=== PATIENT | female | born 1945 | race Caucasian/White ===

== ENCOUNTER 2018-03-18 18:09 | Inpatient (IN) | payer MEDICARE, MEDICAID ==
[~2018-03-18] VITALS: Ht 165.1 cm; Wt 90.7 kg
--- NOTE | 2018-03-18 18:09 | NUR ---
EUNICE FROM [facility] FOR GPS ADMISSION, AGGRESSIVE AND THREATENING BEHAVIOUR TOWARDS CAREGIVERS, ON 5150 HOLD FOR DTO. TO ER BED 6, HOOKED TO MONITOR, AWAITING MD STEELE
--- NOTE | 2018-03-18 18:30 | NUR ---
DR CARDOSO AT BEDSIDE
--- NOTE | 2018-03-18 19:00 | NUR ---
URINE SAMPLE SUBMITTED TO LAB
[2018-03-18 19:16] LABS: APPEARANCE,URINE Clear (CLEAR); BILIRUBIN,URINE Negative (NEGATIVE); BLOOD, URINE Trace-intact Ery/uL (NEGATIVE); COLOR,URINE Yellow (YELLOW); KETONES,URINE Negative (NEGATIVE); LEUKOCYTE ESTERASE ,URINE Negative (NEGATIVE); NITRITE, URINE Negative (NEGATIVE); PROTEIN,URINE Negative (NEGATIVE); UGLUCOSE Negative (NEGATIVE); UROBILINOGEN,URINE 0.2 EU/dL (0.2)
[2018-03-18] MEDS ORDERED: CLON0.2T PO (19:24)
[2018-03-18] MEDS ORDERED: FOLI1TAB16 PO (19:24)
[2018-03-18] MEDS ORDERED: DOCU250C14 PO (19:24)
[2018-03-18] MEDS ORDERED: IPRA0.2S9 IH (19:24)
[2018-03-18] MEDS ORDERED: CARV6.25 PO (19:24)
[2018-03-18] MEDS ORDERED: ASPI-1152 PO (19:24)
[2018-03-18] MEDS ORDERED: BENZ1LOZ58 MM (19:24)
[2018-03-18] MEDS ORDERED: ALBU2.5V38 IH (19:24)
[2018-03-18 19:26] LABS: BACTERIA,URINE None seen /HPF (None Seen); SQUAMOUS EPITHELIAL CELL,UR Few /HPF (None Seen); WBC,URINE 0-2 /HPF (0-3)
--- NOTE | 2018-03-18 19:28 | NUR ---
BED ASSIGNMENT GPS 219-B
--- NOTE | 2018-03-18 19:30 | NUR ---
TOSSER AT BEDSIDE FOR BLOOD DRAW
[2018-03-18] MEDS ORDERED: ACET325T53 PO (19:34)
[2018-03-18] MEDS ORDERED: CHOL200026 PO (19:34)
[2018-03-18] MEDS ORDERED: HYDR-4384 PO (19:34)
[2018-03-18] MEDS ORDERED: CLON0.5T PO (19:34)
[2018-03-18] MEDS ORDERED: CLON2TAB PO (19:34)
[2018-03-18] MEDS ORDERED: ONDA4TAB5 PO (19:34)
[2018-03-18] MEDS ORDERED: PANT40TA2 PO (19:34)
[2018-03-18] MEDS ORDERED: AMLO5TAB4 PO (19:34)
[2018-03-18] MEDS ORDERED: SENN-168 PO (19:34)
[2018-03-18] MEDS ORDERED: MULT1TAB73 PO (19:34)
[2018-03-18] MEDS ORDERED: TEMA30CA5 PO (19:34)
[2018-03-18] MEDS ORDERED: LATA2.5D2 EACHEYE (19:34)
--- NOTE | 2018-03-18 19:37 | NUR ---
REPORT GIVEN TO HOMAR ROJAS FOR MAKENNA
--- NOTE | 2018-03-18 19:37 | NUR ---
RECEIVED REPORT FROM SARAH ROJAS FOR MAKENNA
[2018-03-18 19:48] LABS: BASOPHILS # (AUTO) 0.1 /CMM (0.0-0.2); BASOPHILS % (AUTO) 1.4 % (0.0-2.0); EOSINOPHILS % (AUTO) 3.7 % (0.0-6.0); HEMATOCRIT 42 % (33-45); HEMOGLOBIN 14.2 g/dL (11.5-14.8); LYMPHOCYTES # (AUTO) 2.6 /CMM (0.8-4.8); LYMPHOCYTES % (AUTO) 24.5 % (20.0-44.0); MEAN CORPUSCULAR HGB CONC 34 g/dl (31.0-36.0); MEAN CORPUSCULAR VOLUME 93 fL (82-100); MONOCYTES % (AUTO) 9.8 % (2.0-12.0); NEUTROPHILS # (AUTO) 6.4 /CMM (1.8-8.9); NEUTROPHILS % (AUTO) 60.6 % (43.0-81.0); PLATELET COUNT (AUTO) 278 /CMM (150-450); RED BLOOD CELL COUNT(AUTO) 4.51 MIL/uL (4.0-5.2); WHITE BLOOD COUNT (AUTO) 10.6 K/uL (4.3-11.0)
[2018-03-18 19:56] LABS: CALCIUM, SERUM 9.2 mg/dL (8.5-10.1); CARBON DIOXIDE 28 mmol/L (21-32); CHLORIDE 105 mmol/L (98-107); CREATININE 0.8 mg/dL (0.6-1.3); GLUCOSE 151 mg/dL (74-106); POTASSIUM 3.8 mmol/L (3.5-5.1); SODIUM SERUM 141 mmol/L (136-145); UREA NITROGEN, BLOOD 10 mg/dL (7-18)
[2018-03-18 20:03] LABS: ACETAMINOPHEN < 2 ug/ml (10-30); ALANINE AMINOTRANSFERASE 21 U/L (12-78); ALBUMIN 3.4 g/dL (3.4-5.0); ALCOHOL, BLOOD < 3 mg/dL (0-0); ALKALINE PHOSPHATASE 130 U/L (46-116); ASPARTATE AMINOTRANSFERASE 22 U/L (15-37); BILIRUBIN,DIRECT 0.1 mg/dL (0.0-0.2); BILIRUBIN,TOTAL 0.2 mg/dL (0.2-1.0); SALICYLATE 2.7 mg/dL (2.8-20.0); TOTAL PROTEIN, SERUM 8.2 g/dL (6.4-8.2)
--- NOTE | 2018-03-18 20:29 | NUR ---
GAVE REPORT TO HALLIE ROJAS FOR MAKENNA
--- NOTE | 2018-03-18 20:56 | NUR ---
PT TRANSFERRED TO GPS BED VIA GURNEY WITH EMT
[2018-03-18 21:10] VITALS: BP 128/97
--- NOTE | 2018-03-18 21:10 | NUR ---
GPS-[employer] ARCHITECT NOTES: PATIENT ADMITTED FROM ER INITIALLY FROM [facility]. ADMITTED ON 5149 FOR DTO. CAME TO THE UNIT AROUND 2109 VIA STRETCHER, BROUGHT IN BY ER STAFF. PATIENT IS ADMITTED DUE TO ACTING OUT AGGRESSIVELY TOWARDS CAREGIVERS. PT. WAS YELLING AND SCREAMING. PT STATED "I HATE YOU FUCKING PEOPLE I COULD KILL YOU". PLACED PATIENT IN BED COMFORTABLY. PATIENT SHOWS NO S/SX OF ANY DISTRESS, RESPIRATION EVEN, BREATHING PATTERN NON-LABORED, DENIES PAIN OR DISCOMFORT AT THIS TIME. UPON FACE TO FACE ASSESSMENT PATIENT IS ALERT, ORIENTED 3, GETS EASILY IRRITABLE, INAPPROPRIATE LANGUAGE USED, REDIRECTABLE. DENIES SI/HI OR HALLUCINATIONS AT THIS TIME. AMBULATES WITH WALKER. BELONGINGS WERE INVENTORIED AND CHECKED FOR CONTRABAND. ORDERS WERE OBTAINED FROM DR. SHAW, AND UNDER THE MEDICAL CARE OF DR. THOMSON, SPOKE TO AND MADE AWARE OF PT'S ADMISSION AND MED RECON NEEDS TO BE DONE. SKIN ASSESSMENT DONE. BED LOCKED AND PLACED ON LOWEST POSITION TO MAINTAIN SAFETY. FALL PRECAUTIONS IMPLEMENTED. WILL CONTINUE TO MONITOR Q 15 MINS. FOR SAFETY AND BEHAVIOR.
[2018-03-18] MEDS ORDERED: MAGNESIUM HYDROXIDE 30 ML UDC PO PRN (22:00)
[2018-03-18] MEDS ORDERED: ACETAMINOPHEN 325 MG TABLET PO PRN (22:00)
[2018-03-18] MEDS ORDERED: LORAZEPAM 1 MG TABLET PO PRN (22:00)
[2018-03-18] MEDS ORDERED: MAG HYDROX/AL HYDROX/SIMETH 30 ML UDC PO PRN (22:00)
[2018-03-18] MEDS: clonazePAM 1 MG TABLET PO SCH (22:12)
[2018-03-18] MEDS: TEMAZEPAM 15 MG CAPSULE PO PRN (23:58)
--- NOTE | 2018-03-19 06:25 | NUR ---
GPS-RN SPOKE TO DR. ELIGIO THOMSON ON-CALL FOR DR. GILLIAN THOMSON REGARDING MED RECON, STATED TO CONTINUE THE SAME ORDERS. FAXED TO PHARMACY MED LIST. WILL ENDORSE TO THE DAY SHIFT NURSE ACCORDINGLY.
[2018-03-19 08:00] VITALS: BP 133/60
[2018-03-19] MEDS ORDERED: ONDANSETRON 4 MG TAB.RAPDIS PO PRN (08:00)
[2018-03-19] MEDS ORDERED: ALBUTEROL FS 2.5 MG/3 ML VIAL.NEB NEB PRN (08:00)
[2018-03-19] MEDS ORDERED: IPRATROPIUM NEB FS 0.5 MG/2.5 ML AMPUL.NEB IH PRN (08:00)
[2018-03-19] MEDS ORDERED: MENTHOL/CETYLPYRD (CEPACOL) 1 LOZ LOZENGE PO PRN (08:00)
[2018-03-19] MEDS: MULTIVITAMINS,THERAGRAN 1 UDTAB TABLET PO SCH (09:00)
[2018-03-19] MEDS ORDERED: clonazePAM 0.5 MG TABLET PO SCH (09:00)
[2018-03-19] MEDS: AMLODIPINE BESYLATE 5 MG TABLET PO SCH ×2 (10:17→16:54)
[2018-03-19] MEDS: HYDROCODONE/APAP 5/325MG 1 EACH TABLET PO PRN ×2 (10:17→16:55)
[2018-03-19] MEDS: CLONIDINE HCL 0.1 MG TABLET PO SCH ×3 (10:18→16:53)
[2018-03-19] MEDS: clonazePAM 0.5 MG TABLET PO SCH (10:18)
[2018-03-19] MEDS: DOCUSATE SODIUM 250 MG CAPSULE PO SCH ×2 (10:19→16:53)
[2018-03-19] MEDS: ASPIRIN EC 81 MG TABLET.DR PO SCH (10:19)
[2018-03-19] MEDS: FOLIC ACID 1 MG TABLET PO SCH (10:19)
[2018-03-19] MEDS: PANTOPRAZOLE 40 MG TABLET.DR PO SCH (10:19)
[2018-03-19] MEDS: CHOLECALCIFEROL 1,000 UNIT TABLET (VIT D3) PO SCH (10:20)
[2018-03-19] MEDS: CARVEDILOL 6.25 MG TABLET PO SCH ×2 (10:20→21:00)
[2018-03-19] MEDS: CODEINE/PROMETHAZINE HCL 5 ML UDC PO PRN ×2 (10:21→17:22)
--- NOTE | 2018-03-19 13:20 | NUR ---
0800 ASSUMED CARE OF PATIENT. PATIENT ALERT AND ORIENTED TIMES 4. PATIENT DENIES SI AND HI AT THIS TIME. PATIENT IN ROOM WITH NO SIGNS OF DISTRESS AT THIS TIME. PATIENT HAS PAIN 5/10 IN BILATERAL KNEES. PATIENTS VITALS STABLE. 0900 PATIENT MEDICATION COMPLIANT WITH ALL MEDICATIONS. PATIENT CALM AND COOPERATIVE. 1015 PATIENT IN ROOM. PATIENT HAS PAIN 9/10 IN BILATERAL KNEES AND COMPLAINING OF SORE THROAT AND PAIN 6/10 IN THROAT AND NON PRODUCTIVE COUGH. PATIENT GIVEN PROMETHEZINE WITH CODEINE COUGH SYRUP AND NORCO AT THIS TIME FOR COUGH AND PAIN 9/[address] ORDERS. NO BEHAVIORAL PROBLEMS NOTED. 1300 PATIENT IN ROOM. NO PROBLEMS NOTED. PATIENT DENIES PAIN AT THIS TIME. WILL CONTINUE TO MONITOR THROUGHOUT SHIFT.
--- NOTE | 2018-03-19 15:25 | NUR ---
Initial Discharge Plan: Pt currently lives at [facility] located at [address] [place] [address]; ([phone]). Pt would like to return and SW informed the facility who are attempting to decide if she is appropriate or not. SW will work with the pt and the MD regarding appropriate discharge planning. SW will form a safe and proper discharge.
--- NOTE | 2018-03-19 15:26 | NUR ---
PAT called the pt's daughter, Luly ([phone]), but the dial tone went into a message that stated that the number is no longer in service. PAT spoke to the pt's psychiatrist, Dr. Sainz, who stated that the daughter does not have a relationship with the pt.
[2018-03-19 16:04] VITALS: BP 107/59
--- NOTE | 2018-03-19 18:17 | NUR ---
1800 PATIENT IN BED RESTING AT THIS TIME. PATIENT DENIES SI AND HI THROUGHOUT SHIFT. PATIENT VITALS STABLE. PATIENT GIVEN PROMETHAZINE/CODEINE SYRUP AND NORCO AT 1000 AND 1730 FOR PAIN IN BILATERAL KNEES. PATIENT HAS NO SIGNS OF DISTRESS AT THIS TIME PATIENT MEDICATION COMPLIANT THROUGHOUT SHIFT. PATIENT HAS NO BEHAVIORAL PROBLEMS. PATIENT CALM AND COOPERATIVE. ORDERED PATIENT DNR. ALL MEDICAL MEDICATION RECONCILED. WILL ENDORSE TO EDUCATION ADVISER RN. ZEINA HERNANDEZ
[2018-03-19 20:00] VITALS: BP 92/48
[2018-03-19] MEDS: clonazePAM 1 MG TABLET PO SCH (21:34)
[2018-03-19] MEDS: LATANOPROST EYE DROP 0.005% 2.5 ML BOTTLE EACHEYE SCH (21:37)
[2018-03-19] MEDS: SENNOSIDES 8.6 MG TABLET PO SCH (21:37)
[2018-03-20] VITALS: BP 108/56
[2018-03-20] MEDS: TEMAZEPAM 15 MG CAPSULE PO PRN ×2 (00:34→22:50)
[2018-03-20] MEDS: CODEINE/PROMETHAZINE HCL 5 ML UDC PO PRN ×3 (07:01→20:54)
[2018-03-20 08:00] VITALS: BP 133/71
[2018-03-20] MEDS: ASPIRIN EC 81 MG TABLET.DR PO SCH (08:45)
[2018-03-20] MEDS: DOCUSATE SODIUM 250 MG CAPSULE PO SCH ×2 (08:45→16:13)
[2018-03-20] MEDS: CLONIDINE HCL 0.1 MG TABLET PO SCH ×3 (08:45→16:14)
[2018-03-20] MEDS: PANTOPRAZOLE 40 MG TABLET.DR PO SCH (08:45)
[2018-03-20] MEDS: MULTIVITAMINS,THERAGRAN 1 UDTAB TABLET PO SCH (08:45)
[2018-03-20] MEDS: FOLIC ACID 1 MG TABLET PO SCH (08:45)
[2018-03-20] MEDS: CHOLECALCIFEROL 1,000 UNIT TABLET (VIT D3) PO SCH (08:46)
[2018-03-20] MEDS: AMLODIPINE BESYLATE 5 MG TABLET PO SCH ×2 (08:46→16:13)
[2018-03-20] MEDS: clonazePAM 0.5 MG TABLET PO SCH (08:46)
[2018-03-20] MEDS: CARVEDILOL 6.25 MG TABLET PO SCH ×2 (08:46→20:57)
[2018-03-20] MEDS: HYDROCODONE/APAP 5/325MG 1 EACH TABLET PO PRN ×2 (10:08→16:13)
--- NOTE | 2018-03-20 15:42 | NUR ---
GPS/RN PATIENT REFUSED LABS OFFERED X 3 WITH RISKS AND BENEFITS EXPLAINED CONTINUE TO REFUSE. WILL NOTIFY .
[2018-03-20 16:00] VITALS: BP 152/89
--- NOTE | 2018-03-20 16:26 | NUR ---
Mika ([phone]) from [facility] stated that the pt is denied admission back into their facility. SW will now work on securing alternative SNF placement or find placement with a friend.
--- NOTE | 2018-03-20 16:27 | NUR ---
PAT called the pt's friend, Tomer ([phone]), and was unable to make contact because the tone stated that the call cannot be completed.
--- NOTE | 2018-03-20 16:30 | NUR ---
SW called the pt's friend with the accurate number, Tomer ([phone]), and left a message on her voicemail stating that the pt stated she can live with them and the SW just needs to verify this information.
[2018-03-20 20:00] VITALS: BP 127/86
[2018-03-20] MEDS: LATANOPROST EYE DROP 0.005% 2.5 ML BOTTLE EACHEYE SCH (20:59)
[2018-03-20] MEDS: SENNOSIDES 8.6 MG TABLET PO SCH (21:00)
[2018-03-20] MEDS: clonazePAM 1 MG TABLET PO SCH (21:00)
[2018-03-21] MEDS: CODEINE/PROMETHAZINE HCL 5 ML UDC PO PRN ×3 (04:54→22:40)
[2018-03-21 08:00] VITALS: BP 145/74
[2018-03-21] MEDS: clonazePAM 0.5 MG TABLET PO SCH (08:24)
[2018-03-21] MEDS: CLONIDINE HCL 0.1 MG TABLET PO SCH ×3 (08:24→16:33)
[2018-03-21] MEDS: AMLODIPINE BESYLATE 5 MG TABLET PO SCH ×2 (08:24→16:33)
[2018-03-21] MEDS: CHOLECALCIFEROL 1,000 UNIT TABLET (VIT D3) PO SCH (08:25)
[2018-03-21] MEDS: FOLIC ACID 1 MG TABLET PO SCH (08:25)
[2018-03-21] MEDS: CARVEDILOL 6.25 MG TABLET PO SCH ×2 (08:25→21:13)
[2018-03-21] MEDS: ASPIRIN EC 81 MG TABLET.DR PO SCH (08:25)
[2018-03-21] MEDS: DOCUSATE SODIUM 250 MG CAPSULE PO SCH ×2 (08:25→16:33)
[2018-03-21] MEDS: MULTIVITAMINS,THERAGRAN 1 UDTAB TABLET PO SCH (08:25)
[2018-03-21] MEDS: PANTOPRAZOLE 40 MG TABLET.DR PO SCH (08:25)
[2018-03-21 16:00] VITALS: BP 123/72
[2018-03-21] MEDS ORDERED: AZITHROMYCIN 250 MG TABLET PO SCH ×2 (16:00)
[2018-03-21] MEDS: HYDROCODONE/APAP 5/325MG 1 EACH TABLET PO PRN (16:01)
[2018-03-21] MEDS: GUAIFENESIN LA 600 MG TABLET.SA PO SCH ×2 (16:03→21:13)
[2018-03-21] MEDS: AMOX/CLAVULANATE 875 MG TABLET PO SCH (16:03)
[2018-03-21 20:00] VITALS: BP 115/73
[2018-03-21] MEDS: clonazePAM 1 MG TABLET PO SCH (21:14)
[2018-03-21] MEDS: SENNOSIDES 8.6 MG TABLET PO SCH (21:14)
[2018-03-21] MEDS: LATANOPROST EYE DROP 0.005% 2.5 ML BOTTLE EACHEYE SCH (22:29)
[2018-03-21] MEDS: TEMAZEPAM 15 MG CAPSULE PO PRN (22:30)
[2018-03-22 08:00] VITALS: BP 134/63
[2018-03-22] MEDS: DOCUSATE SODIUM 250 MG CAPSULE PO SCH ×2 (09:00→16:31)
[2018-03-22] MEDS: MULTIVITAMINS,THERAGRAN 1 UDTAB TABLET PO SCH (09:00)
[2018-03-22] MEDS: GUAIFENESIN LA 600 MG TABLET.SA PO SCH ×2 (09:00→21:03)
[2018-03-22] MEDS: CODEINE/PROMETHAZINE HCL 5 ML UDC PO PRN ×2 (09:00→21:38)
[2018-03-22] MEDS: AMOX/CLAVULANATE 875 MG TABLET PO SCH ×2 (09:00→21:03)
[2018-03-22] MEDS: clonazePAM 0.5 MG TABLET PO SCH (09:00)
[2018-03-22] MEDS: CARVEDILOL 6.25 MG TABLET PO SCH ×2 (09:00→21:02)
[2018-03-22] MEDS: AMLODIPINE BESYLATE 5 MG TABLET PO SCH ×2 (09:01→16:31)
[2018-03-22] MEDS: CHOLECALCIFEROL 1,000 UNIT TABLET (VIT D3) PO SCH (09:01)
[2018-03-22] MEDS: FOLIC ACID 1 MG TABLET PO SCH (09:01)
[2018-03-22] MEDS: ASPIRIN EC 81 MG TABLET.DR PO SCH (09:01)
[2018-03-22] MEDS: CLONIDINE HCL 0.1 MG TABLET PO SCH ×3 (09:01→16:31)
[2018-03-22] MEDS: PANTOPRAZOLE 40 MG TABLET.DR PO SCH (09:06)
[2018-03-22] MEDS: HYDROCODONE/APAP 5/325MG 1 EACH TABLET PO PRN ×2 (10:39→17:33)
[2018-03-22 16:00] VITALS: BP 123/77
[2018-03-22 20:09] VITALS: BP 125/91
[2018-03-22] MEDS: LATANOPROST EYE DROP 0.005% 2.5 ML BOTTLE EACHEYE SCH (21:03)
[2018-03-22] MEDS: SENNOSIDES 8.6 MG TABLET PO SCH (21:03)
[2018-03-22] MEDS: clonazePAM 1 MG TABLET PO SCH (21:04)
[2018-03-22] MEDS: TEMAZEPAM 15 MG CAPSULE PO PRN (22:50)
[2018-03-23 08:00] VITALS: BP 112/58
[2018-03-23] MEDS: CODEINE/PROMETHAZINE HCL 5 ML UDC PO PRN (08:02)
--- NOTE | 2018-03-23 08:12 | NUR ---
PAT called the pt's friend, Tomer ([phone]), and she stated that the pt can live with her and her in their new apartment that they had just moved into [facility] at [address] [place] [address], [address], [place] [address]. She stated that her , Isidro ([phone]), would be the one to pick the pt up from the hospital at the time of discharge. PAT informed them that the pt would be discharged with her prescriptions so that she can obtain the appropriate medications from a pharmacy.
[2018-03-23] MEDS: PANTOPRAZOLE 40 MG TABLET.DR PO SCH (08:13)
[2018-03-23] MEDS: GUAIFENESIN LA 600 MG TABLET.SA PO SCH (08:13)
[2018-03-23] MEDS: AMOX/CLAVULANATE 875 MG TABLET PO SCH (08:13)
[2018-03-23] MEDS: ASPIRIN EC 81 MG TABLET.DR PO SCH (08:13)
[2018-03-23] MEDS: CHOLECALCIFEROL 1,000 UNIT TABLET (VIT D3) PO SCH (08:13)
[2018-03-23] MEDS: DOCUSATE SODIUM 250 MG CAPSULE PO SCH (08:13)
[2018-03-23] MEDS: clonazePAM 0.5 MG TABLET PO SCH (08:13)
[2018-03-23] MEDS: FOLIC ACID 1 MG TABLET PO SCH (08:13)
[2018-03-23] MEDS: MULTIVITAMINS,THERAGRAN 1 UDTAB TABLET PO SCH (08:13)
[2018-03-23] MEDS: CARVEDILOL 6.25 MG TABLET PO SCH (08:14)
[2018-03-23] MEDS: CLONIDINE HCL 0.1 MG TABLET PO SCH ×2 (09:00→12:31)
[2018-03-23] MEDS: AMLODIPINE BESYLATE 5 MG TABLET PO SCH (09:00)
[2018-03-23] MEDS: HYDROCODONE/APAP 5/325MG 1 EACH TABLET PO PRN (09:33)
--- NOTE | 2018-03-23 12:18 | NUR ---
PAT called Isidro ([phone]), pt's friend, and confirmed that the pt will be discharging today. 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
--- NOTE | 2018-03-23 12:18 | NUR ---
PAT conducted a substance abuse intervention with the patient due to her history with heroin abuse and her current use of cannabis.
[2018-03-23 12:31] VITALS: BP 143/71
--- NOTE | 2018-03-23 15:23 | NUR ---
GPS RN NOTES PATIENT DISCHARGED WITH FAMILY/ FRIENDS TO LIVE WITH FRIEND. DISCHARGE TEACHING PROVIDED VERBALIZED UNDERSTANDING. ALL BELONGINGS RETURNED. BELONGING LIST SIGNED. DISCHARGE PROTOCOL FOLLOWED. PRESCRIPTION PROVIDED TO PATIENT. PATIENT ESCORTED TO CAR BY [facility]. ALL DISCHARGE PAPERWORK COMPLETED WITH CHARGE NURSES HELP. PATIENT DENIES ANY SUICIDAL, HOMICIDAL IDEATION, DENIES ANY VISUAL OR AUDITORY HALLUCINATION.
--- NOTE | 2018-03-23 15:30 | NUR ---
GPS RN NOTES PER SENIOR HADOOP DEVELOPER WHEN PATIENT GOT INTO THE CAR SHE THREW THE DISCHARGE POCKET WITH PRESCRIPTION ON THE WHEELCHAIR STATING " I DONT WANT THIS SHIT " GOT IN THE CAR WITH FRIENDS AND LEFT.
--- NOTE | 2018-03-23 15:36 | NUR ---
Discharge Note: Pt was discharged to her friends home located at [address] [address], [place] [address]; ([phone]). Pt was picked up by the pts friends , Isidro ([phone]), around 3pm. Upon discharge, the pt was in a dysphoric mood and presented with an irritated affect. She had stated that she was pleased to go live with her friend instead of a senior care that she has been in for three years. At the time of discharge, the pt denied both suicidal and homicidal ideation as well as both auditory and visual hallucinations. Pt was also provided with smoking cessation referrals that are listed below. Pt will follow up with her current treatment team that consists of her psychiatrist, Dr. Bernie Sainz, located at [address], [place] [address]; ( sent a fax to with the pts discharge documents) and her electrical electronics engineers, Dr. Isacc Khanna, located at [address] [place] [address]; .
--- NOTE | 2018-04-07 15:59 | NUR ---
15 Day Substance Abuse Follow Up: PAT called the number that was provided at discharge as the number where the pt can be contacted which is [phone]. PAT called three times and left a message three times but did not receive a call back or a message in return.
== END 2018-03-23 16:54 | disposition home or self-care (01) | DRG 880 ==
LOC: ER 18:20 → GPS 20:28
PROVIDERS: ADMIT Psychiatry & Neurology Psychiatry; ATTEND Psychiatry & Neurology Psychiatry
DX: F41.1 Generalized anxiety disorder (principal); F29 Unspecified psychosis not due to a substance or known physiological condition; F17.210 Nicotine dependence, cigarettes, uncomplicated; I10 Essential (primary) hypertension; J44.9 Chronic obstructive pulmonary disease, unspecified; K21.9 Gastro-esophageal reflux disease without esophagitis; M19.90 Unspecified osteoarthritis, unspecified site; R73.9 Hyperglycemia, unspecified; Z66 Do not resuscitate; F19.10 Other psychoactive substance abuse, uncomplicated; F60.9 Personality disorder, unspecified
CPT/HCPCS: 36415; 80048-TC; 80076-TC; 80305; 81000-TC; 85025-TC; 87081-TC; G0480